=== PATIENT | male | born 1970 | race Caucasian/White ===

== ENCOUNTER 2020-07-16 20:07 | Inpatient (IN) | payer MEDICARE, MEDICAID ==
[~2020-07-16] VITALS: Ht 154.9 cm; Wt 50.8 kg
--- NOTE | ~2020-07-16 | CON ---
[facility] [address] [place] [address] CONSULTATION Name: JULIETTE SIMMONS Room: [address] IN .R.#: [id number] Admission: 07/17/20 Attend Phys: Alesha Vo MD Discharge: Date of : 70 Report #: [id number] THIS REPORT FOR: //name// cc: Physician not on staff Physician not on staff ~ THIS REPORT FOR: //name// DATE OF SERVICE: 07/17/2020 Please note at the time of this dictation, the patient was seen and physically examined by myself. REASON FOR CONSULTATION: Vomiting and gastric outlet obstruction. HISTORY OF PRESENT ILLNESS: This is a 49-year-old male, who has significant mental delay and currently resides in a group facility and he is being cared for there on a regular basis with 24-hour care. In talking to his caregiver this morning, she states he was kind of not himself yesterday, was more on the lethargic side, but he tolerated his tube feedings all day, which he gets bolus feedings throughout the day. She states apparently last night when it came time for his next feeding he was intolerable to this and started vomiting. He was very lethargic, prompting them and very volume depleted. They brought him to the Emergency Room where it was found on CT that the balloon that was insufflated for his G-tube had migrated into the duodenum causing a gastric outlet. It appears that they pulled part of it back. He is back to his normal self per his caregiver, but he is currently n.p.o. until this can be further evaluated. She is unable to tell me anything about when the G-tube was placed or where. She states he has been at [facility] and at [facility] on [facility]. So, one of those two places may have been where he had had this G-tube placed before. We will try to obtain those records. She states he is not complaining of any discomfort at this time and he had a very large bowel movement that was normal in color this a.m. ALLERGIES: AUGMENTIN. MEDICATIONS: Zyrtec, thyroid, multivitamin, glycerin, Cogentin, lactulose, Quetiapine, valproic acid, trazodone, Ciprodex otic suspension, Little Tummys, Tylenol and milk of mag. PAST MEDICAL HISTORY: Mental delay; dysphagia is why he has the G-tube; hypothyroidism; he is very debilitated and needs total assist with his ADLs. PAST SURGICAL HISTORY: Negative. FAMILY HISTORY: [place] [address] CONSULTATION Name: JULIETTE SIMMONS Room: [address] IN [facility].#: [id number] Admission: 07/17/20 Attend Phys: Alesha Vo MD Discharge: Date of : 70 Report #: [id number] SOCIAL HISTORY: Lives in a senior care. No alcohol, tobacco or illegal drug use. REVIEW OF SYSTEMS: Twelve-point review of systems is essentially negative except what is mentioned in the HPI and the patient is nonverbal. PHYSICAL EXAMINATION: VITAL SIGNS: Temperature is 37.4, pulse 75, respirations 15, blood pressure 106/56. HEART: Regular rate and rhythm. LUNGS: Clear. ABDOMEN: Soft. Positive bowel sounds in all 4 quadrants with no masses or tenderness noted. G-tube is in place with a bumper. LABORATORY AND DIAGNOSTIC DATA: Hemoglobin 13.4, white count is 11.3, platelets 238. BUN is 30, GFR is 120. CT scan, balloon from the gastrostomy tube is in the proximal duodenum and causing associated duodenal obstruction; he has got some bibasilar infiltrates, likely from aspiration; moderate stool in the left colon with some colonic wall thickening in the transverse colon with no mass or inflammatory changes noted. IMPRESSION: 1. Vomiting, resolved. 2. Gastric outlet obstruction. 3. Leukocytosis. 4. Mentally challenged. PLAN: 1. Obtain records from [facility] and [facility]. 2. EGD with possible PEG tube replacement with Dr. Nelson later today. 3. Further recommendations to be made once the procedure has been performed. Thank you for allowing us to participate in this patient's care. Please do not hesitate to call with any questions in regard to this consult. By: [id number] Nelson MD /nt
--- NOTE | ~2020-07-16 | PROC ---
[address] [address] PROCEDURE REPORT Name: JULIETTE SIMMONS Room: [address] IN ..#: [id number] Admission: 07/17/20 Attend Phys: Alesha Vo MD Discharge: Date of : 70 Report #: [id number] THIS REPORT FOR: //name// cc: Physician not on staff Physician not on staff ~ THIS REPORT FOR: //name// For GI report, please see the Provation report in Perceptive 7 content. By: [id number] Records Staff [facility] /RAMIREZ
[2020-07-16 20:09] VITALS: BP 140/63
[2020-07-16] MEDS ORDERED: CHILDREN'S ZYRT10 M1 PER TUBE (20:20)
[2020-07-16] MEDS ORDERED: FLONASE 0.05%50 MCG NASAL (20:20)
[2020-07-16] MEDS ORDERED: LEVO-T25 MCG PER TUBE (20:20)
[2020-07-16] MEDS ORDERED: THERA M PLUS T1 EAC2 PER TUBE (20:21)
[2020-07-16] MEDS ORDERED: [UNRECOGNIZED DRUG - OTHER] PO (20:23)
[2020-07-16] MEDS ORDERED: BENZTROPINE ME0.5 MG PER TUBE (20:24)
[2020-07-16] MEDS ORDERED: LACTULOSE PER TUBE (20:28)
[2020-07-16] MEDS ORDERED: QUETIAPINE FUM400 M1 PER TUBE (20:29)
[2020-07-16] MEDS ORDERED: TRAZODONE HCL50 MG PER TUBE (20:30)
[2020-07-16] MEDS ORDERED: VALPROIC A500 MG/10 PER TUBE (20:30)
[2020-07-16] MEDS ORDERED: CIPRODEX OTIC7.5 ML RT. EAR (20:31)
[2020-07-16] MEDS ORDERED: TYLENOL325 M1 PER TUBE (20:32)
[2020-07-16] MEDS ORDERED: [UNRECOGNIZED DRUG - OTHER] PER TUBE (20:32)
[2020-07-16] MEDS ORDERED: MILK OF MA400 MG/5 M PO (20:33)
[2020-07-16 21:09] LABS: ABSOLUTE LYMPHOCYTES 1.3 thou/uL (0.8-5.3); ABSOLUTE MONOCYTES 0.7 thou/uL (0.0-1.2); ABSOLUTE NEUTROPHILS 9.3 thou/uL (1.6-8.1); BASOPHILS 0.2 %; EOSINOPHILS 0.1 %; HEMATOCRIT 39.6 % (42.0-52.0); HEMOGLOBIN 13.4 gm/dL (14.0-18.0); LYMPHOCYTES 11.2 %; MCH 29.8 pg (26.0-34.0); MCHC 33.7 g/dL (28.0-37.0); MCV 88.3 fL (80.0-100.0); MONOCYTES 6.6 %; NUCLEATED RBCS 0 /100WBC; PLATELET COUNT* 238 thou/uL (150-400); POLYS 81.9 %; RBC 4.48 mil/uL (4.50-6.00); RDW-CV 16.4 % (10.5-14.5); WBC 11.3 thou/uL (4.0-11.0)
[2020-07-16 21:18] LABS: CALCIUM 10.3 mg/dL (8.5-10.1); CREATININE 0.9 mg/dL (0.6-1.3); POTASSIUM 3.1 mmol/L (3.5-5.1)
[2020-07-16 21:24] LABS: ALBUMIN 3.7 g/dL (3.4-5.0); TOTAL BILIRUBIN 0.4 mg/dL (<0.1-1.0); TOTAL PROTEIN 9.7 g/dL (6.4-8.2)
[2020-07-17 03:00] VITALS: BP 120/70
[2020-07-17 03:40] VITALS: BP 106/66
[2020-07-17 07:30] VITALS: BP 127/57
[2020-07-17 09:31] LABS: CREATININE 0.7 mg/dL (0.6-1.3); MAGNESIUM 2.3 mg/dL (1.8-2.4); PHOSPHORUS* 3.6 mg/dL (2.5-4.9); POTASSIUM 3.5 mmol/L (3.5-5.1)
[2020-07-17 14:15] VITALS: BP 117/61
--- NOTE | 2020-07-17 17:47 | EKG ---
[place] [address] ELECTROCARDIOGRAM REPORT Name: JULIETTE SIMMONS Room: [address] IN [facility]#: [id number] Admission: 07/17/20 Attend Phys: Alesha Vo, Discharge: Date of : 70 Date of Service: 07/16/20 2307 Report #: [id number] THIS REPORT FOR: //name// [facility] ED Test Date: 2020-07-16 Test Time: 23:07:26 Pat Name: JULIETTE SIMMONS Department: Room: [facility] Gender: M Vamp Stitcher: LISANDRO : 1970 Requested By: Elijah Obrien Order Number: [id number] MD: Shan Hogue Measurements Intervals Howe Rate: 86 P: 67 MS: 120 QRS: 82 QRSD: 87 T: 263 QT: 468 QTc: 560 Interpretive Statements Sinus rhythm Probable LVH with secondary repol abnrm ST depr, consider ischemia, inferior leads Prolonged QT interval No previous ECG available for comparison Electronically Signed On 07-17-2020 17:47:04 CDT by Shan Hogue [email or web address] <ELECTRONICALLY SIGNED> By: Shan Hogue MD, FACC 07/17/20 1747 06 06 Shan Hogue MD, FACC /EPI
[2020-07-17 22:40] VITALS: BP 121/61
[2020-07-18 02:48] VITALS: BP 109/48
[2020-07-18 07:30] VITALS: BP 102/43
[2020-07-18 16:00] VITALS: BP 100/57
[2020-07-18 20:00] VITALS: BP 106/62
[2020-07-19] MEDS ORDERED: PREVACID30 M2 PO (07:28)
[2020-07-19 08:00] VITALS: BP 107/56
[2020-07-19 10:35] VITALS: BP 106/62
--- NOTE | 2020-07-22 12:06 | PATH ---
[facility] [address] [place] [address] PATHOLOGY RPT PROCEDURE Name: JULIETTE SIMMONS Room: [address] IN .R.#: [id number] Admission: 07/17/20 Date of : 70 Discharge: 07/19/20 Report #: [id number] Path Case #: [id number] Accession Number: [id number] . 01 Material submitted: . stomach - GASTRIC ULCER BIOPSY . 01 Clinical history: . GASTRIC OUTLET OBSTRUCTION, VOMITING . 02 Diagnosis: Gastric ulcer: - Moderate chronic gastritis suggesting reactive gastropathy (chemical gastritis), negative for Helicobacter pylori organisms, granulomas and dysplasia. (MAR:saundra; 07/22/2020) . Special stain: H. pylori immuno QMS 07/22/2020 1137 Local . 02 Electronically signed: . Jack Heart MD, Pathologist NPI- [id number] . 01 Gross description: . The specimen is received in formalin, labeled "Caleb, Juliette, gastric ulcer" and consists of a fragment of pink-young tissue measuring 0.5 x 0.4 cm which is entirely submitted in A1. (SDY; 07/19/2020) SYU/SYU 07/19/2020 1247 Local . 02 Pathologist provided ICD-10: K29.50 . 02 CPT . 197764, [id number] Specimen Comment: A courtesy copy of this report has been sent to [phone] Specimen Comment: [phone], Specimen Comment: Report sent to ,DR HCIKS / DR MOODY Performed at: [address], [place] [id number] MD Eder Freeman MD Phone: [phone] Performed at: 02 [facility] [address], [place], [place] [id number] MD Jack Heart MD Phone: [phone]
== END 2020-07-19 14:55 | disposition home or self-care (01) | DRG 394 ==
LOC: M.ERS 20:07 → M.TBA-ER 07-17 00:31 → M.ORTHSURG 07-17 03:00
PROVIDERS: Emergency Medicine Emergency Medical Services; Internal Medicine; ADMIT Internal Medicine; ATTEND Internal Medicine
PROC: 0DH63UZ Insertion of Feeding Device into Stomach, Percutaneous Approach (ICD-10-PCS; principal; 2020-07-17)
PROC: 0DP6XUZ Removal of Feeding Device from Stomach, External Approach (ICD-10-PCS; principal; 2020-07-17)
PROC: 0DB68ZX Excision of Stomach, Via Natural or Artificial Opening Endoscopic, Diagnostic (ICD-10-PCS; principal; 2020-07-17)
DX: K94.29 Other complications of gastrostomy (principal); K31.1 Adult hypertrophic pyloric stenosis; E03.9 Hypothyroidism, unspecified; E87.6 Hypokalemia; R13.10 Dysphagia, unspecified; E86.9 Volume depletion, unspecified; E83.52 Hypercalcemia; K44.9 Diaphragmatic hernia without obstruction or gangrene; K25.9 Gastric ulcer, unspecified as acute or chronic, without hemorrhage or perforation; K21.00 Gastro-esophageal reflux disease with esophagitis, without bleeding; Z20.828 Contact with and (suspected) exposure to other viral communicable diseases; Y83.8 Other surgical procedures as the cause of abnormal reaction of the patient, or of later complication, without mention of misadventure at the time of the procedure; Z88.1 Allergy status to other antibiotic agents; Z88.8 Allergy status to other drugs, medicaments and biological substances; Z91.048 Other nonmedicinal substance allergy status; Y92.89 Other specified places as the place of occurrence of the external cause

== ENCOUNTER 2021-02-06 16:24 | Emergency (ER) | payer OTHER, MEDICAID ==
[~2021-02-06] VITALS: Ht 154.9 cm; Wt 49.0 kg
[~2021-02-06 16:24] MED LIST: BENZTROPINE ME0.5 MG PER TUBE; CHILDREN'S ZYRT10 M1 PER TUBE; CIPRODEX OTIC7.5 ML RT. EAR; FLONASE 0.05%50 MCG NASAL; LACTULOSE PER TUBE; LEVO-T25 MCG PER TUBE; MILK OF MA400 MG/5 M PO; PREVACID30 M2 PO; QUETIAPINE FUM400 M1 PER TUBE; THERA M PLUS T1 EAC2 PER TUBE; TRAZODONE HCL50 MG PER TUBE; TYLENOL325 M1 PER TUBE; VALPROIC A500 MG/10 PER TUBE; [UNRECOGNIZED DRUG - OTHER] PER TUBE; [UNRECOGNIZED DRUG - OTHER] PO
[2021-02-06 19:24] VITALS: BP 139/98
== END 2021-02-06 19:24 | disposition home or self-care (01) ==
LOC: M.ERS 16:24
DX: K94.23 Gastrostomy malfunction (principal); E03.9 Hypothyroidism, unspecified; Z88.1 Allergy status to other antibiotic agents; Z88.8 Allergy status to other drugs, medicaments and biological substances; Z79.899 Other long term (current) drug therapy

== ENCOUNTER 2021-02-07 08:13 | Emergency (ER) | payer OTHER, MEDICAID ==
[~2021-02-07] VITALS: Ht 157.5 cm; Wt 45.8 kg
[2021-02-07 09:35] VITALS: BP 114/50
== END 2021-02-07 09:35 | disposition home or self-care (01) ==
LOC: M.ERS 08:13
DX: K94.22 Gastrostomy infection (principal); E03.9 Hypothyroidism, unspecified; Z88.1 Allergy status to other antibiotic agents; Z88.8 Allergy status to other drugs, medicaments and biological substances

== ENCOUNTER 2021-07-31 15:58 | Emergency (ER) | payer OTHER, MEDICAID ==
[~2021-07-31] VITALS: Ht 152.4 cm; Wt 43.1 kg
[2021-07-31 18:39] VITALS: BP 125/77
== END 2021-07-31 18:40 | disposition home or self-care (01) ==
LOC: M.ERS 15:58
DX: K94.23 Gastrostomy malfunction (principal); E03.9 Hypothyroidism, unspecified; Z79.899 Other long term (current) drug therapy; Z88.1 Allergy status to other antibiotic agents; Z91.048 Other nonmedicinal substance allergy status; Y84.8 Other medical procedures as the cause of abnormal reaction of the patient, or of later complication, without mention of misadventure at the time of the procedure